=== PATIENT | female | born 1960 | race Caucasian/White ===

== ENCOUNTER 2019-12-02 10:13 | Day surgery (SDC) | payer SELFPAY ==
[2019-12-02] VITALS (7 sets, daily range): BP systolic 124–170; BP diastolic 69–89; PULSE 65–73; RESP 16–18; TEMP 36.3–36.6; O2SAT 93–98; BMI 31.4
[2019-12-02] MEDS: Lactated Ringers 1,000 ML 100 ML IV (10:58)
[2019-12-02] MEDS: Cefazolin 2 GM in 0.9% Normal Saline 100 ML IV (13:32)
[2019-12-02] MEDS: Lidocaine Jelly 2% 20 ML Syringe (URO-JET) 20 APPLIC (13:39)
--- NOTE | 2019-12-02 13:51 | HP.PCM_ITS ---
Problem List (1) Large bladder stone causing outlet obstr Status: Acute History of Present Illness Date of Admission: 12/02/19 Chief Complaint: Bladder stone with outlet obstruction The patient is a 59 year old female who was found to have a large bladder stone causing outlet obstruction causing her pain and discomfort with urination problems emptying her bladder incomplete emptying pain and frequency so because of this we can proceed with treatment of the stone with a laser and then remove the fragments. Past Medical History Allergies No Known Allergies Allergy (Verified 12/01/19 10:45) Home Medications: Ambulatory Orders Medication Instructions Recorded NK 12/01/19 Surgical History: no surgical history Smoking Status: Never smoker Tobacco Use: Non-smoker Review of Systems Constitutional: Denies: Chills, Fever, Weight Change HEENT: Denies: Head Aches, Sinus Congestion, Sinus Drainage Cardiovascular: Denies: Chest Pain, Palpitations Respiratory: Denies: Cough, Shortness of breath at rest, Sputum production Gastrointestinal: Denies: Abdominal Pain, Nausea, Vomiting Genitourinary: Denies: Dysuria Musculoskeletal: Denies: Joint Pain, Joint Tenderness Skin: Denies: Rash, Wounds Neurological: Denies: Numbness, Tingling, Focal weakness Psychiatric: Denies: Anxiety, Depression, Homicidal Ideations, Suicidal Ideations Hematologic/ Lymphatic: Denies: Easy Bruising, Easy Bleeding VTE Information - Inpt Only VTE Present on Admission: No VTE Mechan Device Prophylaxis: SCD's Patient Problems: Active and Suspected Problems Large bladder stone causing outlet obstr (Acute) - Physical Exam Vitals/I&O's: Vital Signs Temp Pulse Resp BP Pulse Ox 97.9 F 73 18 170/89 H 98 12/02/19 10:41 12/02/19 10:41 12/02/19 10:41 12/02/19 10:41 12/02/19 10:41 Oxygen Delivery Method Room Air Weight: 68.311 kg Body Mass Index (BMI) 31.4 General: Alert, Oriented x3, Cooperative HEENT: Atraumatic, PERRLA, EOMI, Normocephalic Neck: Supple, No JVD, Negative Carotid Bruits Lungs: Clear to auscultation, Normal air movement Cardiovascular: Regular rate, No murmurs Abdomen: Bowel Sounds Present, Soft, Non Tender Extremities: No edema, Capillary Refill Less than 3 Seconds Skin: No rashes, No breakdown Musculoskeletal: No Tenderness to Palpation of Joints or Extremities Neurological: Cranial nerves II-XII grossly intact Psych/Mental Status: Normal Affect, Appropriate Current Medications Lactated Ringer's () 1,000 mls @ 100 mls/hr IV .Q10H CHRIS Last Admin: 12/02/19 10:58 Dose: 100 mls/hr Documented by: Assessment/Plan All Active Problems Large bladder stone causing outlet obstr (Acute) Plan to proceed with laser of bladder stone causing outlet bladder obstruction. Essential Procedure Criteria Procedure Essential: Yes Criteria Note: On 11/10/2019 the [facility] ([facility]) Public Order signed by [facility] Director Emma Woodward M.D., regarding the Management of Non- Essential Surgeries and Procedures for the purpose of preserving Personal Protective Equipment (PPE) and critical hospital capacity and resources within [place] went into effect as of 11/11/2019 at 5:00PM. According to the [facility] Public Order: This action will remain in full force and effect until the State of Emergency declared by the Governor no longer exists or the Director of the [facility] rescinds or modifies this Order.. This [facility] order stated all non-essential or elective surgeries and procedures that utilize PPE should be delayed unless there is undue risk to the current or future health of a patient. After reviewing the aforementioned [facility] Public Order and the patients clinical case, I have determined that the scheduled procedure meets the criteria to go forward. Risk to Patient if Procedure Delayed: Risk of rapidly worsening to severe symptoms
--- NOTE | 2019-12-02 13:54 | DCINST_ITS ---
Discharge Diet: Light diet - advance as tolerated Discharge Activity: Return to Normal Activity Suture Line Care: Avoid Pulling/Pushing, Avoid Pinching/Bending - And call the family Allergies/Adverse Reactions: Allergies No Known Allergies Allergy (Verified 12/01/19 10:45) Medications to take at Discharge NK 12/01/19 Primary Care Physician: Fabrice Harris DO [Primary Care Provider] - Test Results: Test results from this visit will be discussed in further detail at your follow- up appointment, if applicable. Please Follow Up With: Benoit Ramon MD When: please call to make an appointment- phone call appt.
--- NOTE | 2019-12-02 13:55 | PCM.OPRPT ---
Problem List (1) Large bladder stone causing outlet obstr Status: Acute Report of Operation Date of Procedure: 12/02/19 Pre-Operative Diagnosis: Bladder stone outlet obstruction Post-Operative Diagnosis: Same Surgery/Procedure Performed:: Cystoscopy laser bladder stone evacuation of fragments Description of Surgical Findings:: Patient is female patient was found to have bladder stones within the bladder, the stones measured 3 centimeters in size in total. We talked about the etiology and possible reasons why he got bladder stones. Today we can do a diagnostic cystoscopy to evaluate the prostate and working to proceed with laser cystolitholapaxy and removal of bladder stones. We talked about the risk of the procedure including the risk of bleeding, risk of infection, risk of blood clot formation, the risk associated with anesthesia. Also discussed the possibility he may have trouble urinating and he may need a catheter afterwards. After discussion with the patient he is agreeable with proceeding with lasering the bladder stones. Patient was taken back to the operating room after smooth induction of anesthesia she was placed supine on the table and then in dorsolithotomy position, the urethra was prepped and draped in the usual sterile fashion. I first went into the bladder with a 21 [place] rigid cystourethroscope the entire length of the urethra within the bladder I found a stone that measured up to the size of 3cm. No diverticuli was seen within the bladder we then put in a 24 [place] sheath into the bladder and used the laser bridge and then we proceeded with laser lithotripsy using the laser fiber to break the stones into tiny little pieces and evacuated the pieces during the case piece by piece. At the end of the case there was no injury to the urethra no injury to the prostate the left and right ureteral orifice were still patent and open all the stone fragments were removed there was little to no bleeding within the bladder. The anesthesia was reversed he was taken back to the PACU in good condition if he is able to urinate he will go home without a catheter if he is not able to urinate and will need a catheter after the procedure patient was aware this will follow-up in the office afterwards. Type of Anesthesia:: General - Admit VTE Documentation VTE Present on Admission: No VTE Mechan Device Prophylaxis: SCD's
== END 2019-12-02 15:06 | disposition home or self-care (01) ==
LOC: SDC 10:17 → AC 10:21
PROVIDERS: PCP Family Medicine; Referring Provider Urology; Visit Provider Urology
PROC: (CPT 52318; principal; 2019-12-02 12:00)
DX: N21.0 Calculus in bladder (principal); Z87.442 Personal history of urinary calculi
CPT/HCPCS: 52318; J7120; J2405